=== PATIENT | female | born 1985 | race Caucasian/White ===

== ENCOUNTER 2022-05-19 15:11 | Emergency (ER) | payer MEDICAID, SELFPAY ==
[2022-05-19 15:22] VITALS: BP 140/87; PULSE 88; RESP 18; TEMP 36.2; O2SAT 100
--- NOTE | 2022-05-19 15:29 | ED_ITS ---
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 Her last use for all of these was , approximately 5 days ago. Patient feels jittery, short of breath, racing heart, sense of chest pressure, restless. She thinks she is having a panic attack . This has happened to her before. She had been drinking alcohol 3 days a week. No history of alcohol withdrawal seizures. She is currently finishing the last day of her menstrual cycle. No other complaints. No history of CAD, pulmonary embolism, heart failure. Associated symptoms: Reports nausea; Deny abdominal pain, dyspnea, fever(s), syncope or vomiting Review of Systems General: Reports: 10 or more systems reviewed and unremarkable except in HPI and below Const: Denies: fever(s) Eyes: Denies: change in vision Card: Denies: edema or syncope Resp: Denies: dyspnea or productive cough GI: Reports: nausea; Denies: abdominal pain or vomiting : Denies: flank pain, dysuria or urinary frequency Musc: Denies: extremity swelling Skin/Breast: Denies: rash or erythema Neuro: Reports: headache(s); Denies: numbness in extremities, weakness in extremities, lack of coordination, difficulty walking, dizziness, confusion or seizure-like activity Psych: Reports: anxiety, panic attacks, irritability and difficulty concentrating Physical Exam Const: COMMON NORMALS: no limitations, alert and well nourished EXAM LIMITATIONS: no altered mental status HENMT: COMMON NORMALS: normocephalic, atraumatic and external ears normal HEAD & SCALP: normocephalic and atraumatic EXTERNAL EAR: Yes external ears normal MOUTH: no muffled voice Eye: COMMON NORMALS: EOMs intact bilaterally and conjunctivae normal CONJUNCTIVA: Yes conjunctivae normal Neck/C-Spine: COMMON NORMALS: no JVD GENERAL: Yes normal visual inspection and Yes trachea midline Resp: COMMON NORMALS: normal respiratory effort, No use of accessory muscles and clear to auscultation bilaterally AUSCULTATION: clear to auscultation bilaterally Cardio: COMMON NORMALS: no JVD, regular rate and regular rhythm RATE: regular rate RHYTHM: regular rhythm GI: COMMON NORMALS: Soft to palpation PALPATION: Yes Soft to palpation, No Tenderness to palpation present (GI) and No Guarding due to palpation present (GI) Extremity: COMMON NORMALS: normal to inspection Neuro: COMMON NORMALS: moves all extremities, no focal motor deficits and no sensory deficits noted SENSORIUM/ORIENTATION: Yes alert Psych: COMMON NORMALS: mental status grossly normal, Normal thought process present, cooperative and speech normal ATTITUDE: Yes agitated ACTIVITY/MOTOR BEHAVIOR: Yes fidgeting, Yes hyperactivity and Yes restless SPEECH: Yes normal speech MOOD & AFFECT: Yes anxious THOUGHT PROCESS: Normal thought process present THOUGHT CONTENT: Yes Normal thought content present ATTENTION/CONCENTRATION: Yes attention grossly intact INSIGHT: Good insight present (Psych) Skin: COMMON NORMALS: no rashes or lesions noted, turgor normal and no jaundice GENERAL SKIN EXAM: no rashes or lesions noted and turgor normal Course Vital Signs: Vital signs: Vital Signs Temperature 97.2 F L 05/19/22 15:22 Pulse Rate 84 05/19/22 16:53 Respiratory Rate 18 05/19/22 15:22 Blood Pressure 128/70 05/19/22 16:53 Pulse Oximetry 98 05/19/22 16:53 MDM - Chest Pain Medical Decision Making Patient presents with psychomotor agitation and anxiety. She is coming down off of K2, methamphetamine and alcohol. She has normal thought content and process. Her EKG is showing sinus rhythm without any ischemic changes. Very low suspicion for PE, dissection, pneumonia, pneumothorax, coronary artery disease, or other life threats. Patient will be given some Ativan, Zyprexa and reassess. UPDATE: Symptoms resolved after treatment. Will d/c with hydroxyzine and promethazine. F/u w/ substance abuse rehab. Discharge Plan Discharge Patient Disposition: Home Clinical Impression: Atypical chest pain, Withdrawal from methamphetamine Condition: Stable Prescriptions: New hydroxyzine HCl 25 mg tablet 25 mg PO Q6H PRN (Reason: anxiety) Qty: 30 0RF promethazine 25 mg tablet 25 mg PO Q6H PRN (Reason: nausea and vomiting) Qty: 14 0RF Discharge Orders: Discharge ED (Routine); Ordered 05/19/22 Ordered By: Landry Weber Discharge Diet: Usual diet Discharge Activity: Resume usual activity Patient Instructions: Narcotic Withdrawal (ED), Opioid Safety, Pain Management Activity Restrictions/Additional Instructions: Make an appointment with: [facility] [address], [place], [place] [id number] [phone] Coding Level of Care Code ED Stockroom Attendant for Chg Fwd Exam Comprehensive
[2022-05-19] MEDS: OLANZapine 10 mg ODT PO (15:40)
[2022-05-19] MEDS: LORazepam 2 mg/mL INJ 1 mL 1 MG IVP (15:40)
[2022-05-19] MEDS: ondansetron 2 mg/ML SDV 2 mL 4 MG IVP (15:43)
[2022-05-19 15:45] VITALS: BP 118/81; PULSE 86; O2SAT 100
[2022-05-19 16:09] VITALS: BP 118/71; PULSE 83; O2SAT 100
[2022-05-19 16:53] VITALS: BP 128/70; PULSE 84; O2SAT 98
== END 2022-05-19 16:50 | disposition home or self-care (01) ==
PROVIDERS: Emergency Provider Emergency Medicine
DX: R07.89 Other chest pain (principal); F15.23 Other stimulant dependence with withdrawal
CPT/HCPCS: 96374; 96375; 99284; J2060; J2405